=== PATIENT | female | born 1945 | race Caucasian/White ===

== ENCOUNTER 2017-06-12 21:40 | Emergency (ER) | payer MEDICARE, OTHER ==
[2017-06-12] MEDS ORDERED: Alum Hydroxide/Mag Hydroxide 15 ML, Lidocaine 2% 15 ML PO ONE ×2 (22:03)
--- NOTE | 2017-06-12 22:14 | EDM.PDOC ---
ED HPI GENERAL MEDICAL PROBLEM - General Chief Complaint: Cardiovascular Problem Stated Complaint: HEART PROBLEMS Time Seen by Provider: 06/12/17 22:00 Source of Information: Reports: Patient, Old Records History Limitations: Reports: No Limitations - History of Present Illness INITIAL COMMENTS - FREE TEXT/NARRATIVE: 72 yo female developed central/left chest discomfort like ingestion after eating a large supper with grilled chicken/potato salad. Since she has a pHx of CAD she decided to come to the ER for evaluation. Pain does not resemble that from when she had her [place]. No nausea, diaphoresis, or SOB. No self tx. Pain is gradually improving since its onset. Does not have NTG at home. No calf pain or LE edema. Onset: Today Onset Date: 06/12/17 Onset Time: 19:00 Duration: Minutes: Location: Reports: Chest Quality: Reports: Burning Severity: Moderate Improves with: Reports: Other (time) Worsens with: Reports: Other (? 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) (None) - Related Data Allergies Allergy/AdvReac Type Severity Reaction Status Date / Time chlorhexidine Allergy Itching Verified 01/14/16 08:57 codeine Allergy Nausea and Verified 01/14/16 08:57 Vomiting naproxen Allergy Hives Verified 01/14/16 08:57 Home Meds: Home Meds Acetaminophen [Tylenol Arthritis Pain] 1,300 mg PO BID 03/29/14 [History] Albuterol/Ipratropium [Combivent Respimat] 1 puff INH QID 03/29/14 [History] Alendronate [Fosamax] 70 mg PO Q7D 03/29/14 [History] Budesonide [Budesonide EC] 3 mg PO DAILY@0600 03/29/14 [History] Calcium Carbonate/Vitamin D3 [Calcium 600-Vit D3 800 Tablet] 1 tab PO DAILY@ 1100 03/29/14 [History] Cholecalciferol (Vitamin D3) [Vitamin D3] 2,000 units PO DAILY@1100 03/29/14 [ History] Clopidogrel [Plavix] 75 mg PO DAILY 03/29/14 [History] Isosorbide Mononitrate [Imdur] 15 mg PO BID 03/29/14 [History] Lisinopril [Prinivil] 40 mg PO DAILY 03/29/14 [History] Metoprolol Tartrate 50 mg PO BID 03/29/14 [History] Nitroglycerin [Nitrostat] 0.4 mg SL ASDIRECTED PRN 03/29/14 [History] Venlafaxine [Effexor XR] 75 mg PO DAILY 03/29/14 [History] amLODIPine [Norvasc] 10 mg PO BEDTIME 03/29/14 [History] atorvaSTATin [Lipitor] 40 mg PO BEDTIME 03/29/14 [History] clonazePAM [Klonopin] 2 mg PO BEDTIME 03/29/14 [History] Aspirin 81 mg PO DAILY 12/18/15 [History] Ciclopirox [Loprox 0.77% Crm] 1 dose TOP BID 12/18/15 [History] LORazepam [Ativan] 0.5 mg PO DAILY PRN 12/18/15 [History] Mesalamine [Lialda] 1.2 gm PO DAILY 12/18/15 [History] glipiZIDE [Glipizide ER] 10 mg PO DAILY 12/18/15 [History] Past Medical History HEENT History: Reports: Cataract Cardiovascular History: Reports: Bypass, CAD, High Cholesterol, Hypertension, [place] Respiratory History: Reports: Bronchitis, Recurrent, COPD, SOB, Other (See Below ) Other Respiratory History: EMPHYSEMA Gastrointestinal History: Reports: Cholelithiasis, Colon Polyp Genitourinary History: Reports: None 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: Musculoskeletal History: Reports: Back Pain, Chronic, Osteoporosis Neurological History: Reports: CVA Psychiatric History: Reports: Depression Endocrine/Metabolic History: Reports: Diabetes, Type I Hematologic History: Reports: None Immunologic History: Reports: None Oncologic (Cancer) History: Reports: None Dermatologic History: Reports: None - Infectious Disease History Infectious Disease History: Reports: Chicken Pox, Measles, Mumps - Past Surgical History HEENT Surgical History: Reports: Cataract Surgery, Tonsillectomy Female Surgical History: Reports: Breast Biopsy, Hysterectomy Musculoskeletal Surgical History: Reports: Arthroscopic Knee Social & Family History - Tobacco Use Smoking Status *Q: Current Every Day Smoker Years of Tobacco use: 45 Packs/Tins Daily: 0.5 - Alcohol Use Days Per Week of Alcohol Use: 0 - Recreational Drug Use Recreational Drug Use: No ED ROS GENERAL - Review of Systems Review Of Systems: See Below Constitutional: Reports: No Symptoms HEENT: Reports: No Symptoms Respiratory: Reports: No Symptoms Cardiovascular: Reports: Chest Pain Endocrine: Reports: No Symptoms GI/Abdominal: Denies: Abdominal Pain, Black Stool, Bloody Stool, Constipation, Diarrhea, Decreased Appetite, Distension, Flatus, Hematemesis, Hematochezia, Melena, Nausea, Stool Incontinence, Vomiting : Reports: No Symptoms Musculoskeletal: Reports: No Symptoms Skin: Reports: No Symptoms Neurological: Reports: No Symptoms Psychiatric: Reports: No Symptoms ED EXAM, GENERAL - Physical Exam Exam: See Below Exam Limited By: No Limitations General Appearance: Alert, WD/WN, No Apparent Distress Eye Exam: Bilateral Eye: Normal Inspection Ears: Normal External Exam, Normal Canal, Hearing Grossly Normal, Normal TMs Ear Exam: Bilateral Ear: Auricle Normal, Canal Normal Nose: Normal Inspection, Normal Mucosa, No Blood Throat/Mouth: Normal Inspection, Normal Lips, Normal Oropharynx, Normal Voice, No Airway Compromise Head: Atraumatic, Normocephalic Neck: Normal Inspection Respiratory/Chest: No Respiratory Distress, Lungs Clear, Normal Breath Sounds, No Accessory Muscle Use, Chest Non-Tender Cardiovascular: Regular Rate, Rhythm, No Edema GI/Abdominal: Normal Bowel Sounds, Soft, Non-Tender, No Distention, No Mass Back Exam: Normal Inspection, Full Range of Motion. No: CVA Tenderness (R), CVA Tenderness (L) Extremities: Normal Inspection, Normal Range of Motion, Non-Tender, No Pedal Edema Neurological: Alert, Oriented, CN II-XII Intact, Normal Cognition, No Motor/ Sensory Deficits Psychiatric: Normal Affect, Normal Mood Skin Exam: Warm, Dry, Intact, Normal Color, No Rash Lymphatic: No Adenopathy EKG INTERPRETATION EKG Date: 06/12/17 Time: 21:55 Rhythm: NSR Rate (Beats/Min): 80 [place]: Normal P-Wave: Present QRS: Normal ST-T: Normal QT: Normal Comparison: NA - No Prior EKG EKG Interpretation Comments: Q's in inferior leads. No acute changes. No ectopy. Course - Vital Signs Text/Narrative:: GI cocktail po-sx's completely gone - Orders/Labs/Meds Meds: Medications Discontinued Medications Generic Name Dose Route Start Last Admin Trade Name Beck PRN Reason Stop Dose Admin Al Hydroxide/Mg Hydroxide 15 0 ml 06/12/17 22:03 ml/ Lidocaine HCl 15 ml PO 06/12/17 22:04 ONETIME ONE Departure - Departure Time of Disposition: 22:23 Disposition: Home, Self-Care 01 Condition: Good Clinical Impression: GERD (gastroesophageal reflux disease) Qualifiers: Esophagitis presence: without esophagitis Qualified Code(s): K21.9 - Gastro- esophageal reflux disease without esophagitis
[2017-06-12 22:57] VITALS: BP 100/53
== END 2017-06-12 22:43 | disposition home or self-care (01) ==
LOC: FB.ED 21:40
DX: K21.9 Gastro-esophageal reflux disease without esophagitis (principal); I25.10 Atherosclerotic heart disease of native coronary artery without angina pectoris; I25.2 Old myocardial infarction; E78.00 Pure hypercholesterolemia, unspecified; I10 Essential (primary) hypertension; J44.9 Chronic obstructive pulmonary disease, unspecified; F32.9 Major depressive disorder, single episode, unspecified; E10.9 Type 1 diabetes mellitus without complications; F17.210 Nicotine dependence, cigarettes, uncomplicated; M81.0 Age-related osteoporosis without current pathological fracture; Z88.1 Allergy status to other antibiotic agents; Z88.5 Allergy status to narcotic agent; Z88.8 Allergy status to other drugs, medicaments and biological substances; Z79.82 Long term (current) use of aspirin; Z79.899 Other long term (current) drug therapy; Z95.1 Presence of aortocoronary bypass graft; Z86.73 Personal history of transient ischemic attack (TIA), and cerebral infarction without residual deficits; Z90.89 Acquired absence of other organs; Z90.710 Acquired absence of both cervix and uterus; Z98.49 Cataract extraction status, unspecified eye
CPT/HCPCS: 93005; 99283; A9270

== ENCOUNTER 2018-12-12 22:45 | Emergency (ER) | payer MEDICARE, OTHER ==
[2018-12-13] MEDS ORDERED: Sodium Phosphate,Monobasic/Sodium Phosphate,Dibasic Enema 133 ML Bottle RECTAL ONE (00:08)
--- NOTE | 2018-12-13 00:08 | EDM.PDOC ---
ED HPI GENERAL MEDICAL PROBLEM - General Chief Complaint: Gastrointestinal Problem Stated Complaint: CONSTIPATION Time Seen by Provider: 12/12/18 22:45 Source of Information: Reports: Patient, Family () History Limitations: Reports: No Limitations - History of Present Illness INITIAL COMMENTS - FREE TEXT/NARRATIVE: 73 y.o.w.f came with her to [facility] ed due to abd. pain, not having a BM after 3 days. Pt attempted several laxatives. She does not pass gas either. No N /V. Pt underwent Gall bladder, appendix and hysterectomy in the past. She had polyps at her colon removed as well. She did not see blood in her stool on her last BM. No other acute medical issues. BP 98/64 pulse Temp 36.9 Pulse 71 RR 18 Pulse ox 100% on RA Onset Date: 12/10/18 Onset Time: 08:00 Duration: Day(s): Location: Reports: Abdomen Quality: Reports: Dull Severity: Mild Improves with: Reports: None Worsens with: Reports: None Context: Reports: Other (no BM for 3 days.) Associated Symptoms: Reports: No Other Symptoms abdomen Pain Score (Numeric/FACES): 0 - Related Data Allergies Allergy/AdvReac Type Severity Reaction Status Date / Time chlorhexidine Allergy Itching Verified 12/13/18 03:05 codeine Allergy Nausea and Verified 12/13/18 03:05 Vomiting naproxen Allergy Hives Verified 12/13/18 03:05 Home Meds: Home Meds . 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: Musculoskeletal History: Reports: Back Pain, Chronic, Osteoporosis Neurological History: Reports: CVA Psychiatric History: Reports: Depression Endocrine/Metabolic History: Reports: Diabetes, Type I Hematologic History: Reports: None Immunologic History: Reports: None Oncologic (Cancer) History: Reports: None Dermatologic History: Reports: None - Infectious Disease History Infectious Disease History: Reports: Chicken Pox, Measles, Mumps - Past Surgical History HEENT Surgical History: Reports: Cataract Surgery, Tonsillectomy Female Surgical History: Reports: Breast Biopsy, Hysterectomy Musculoskeletal Surgical History: Reports: Arthroscopic Knee Social & Family History - Caffeine Use Caffeine Use: Reports: None ED ROS GENERAL - Review of Systems Review Of Systems: See Below Constitutional: Reports: No Symptoms HEENT: Reports: No Symptoms Respiratory: Reports: No Symptoms Cardiovascular: Reports: No Symptoms Endocrine: Reports: No Symptoms GI/Abdominal: Reports: Abdominal Pain : Reports: No Symptoms Musculoskeletal: Reports: No Symptoms Skin: Reports: No Symptoms Neurological: Reports: No Symptoms Psychiatric: Reports: No Symptoms Hematologic/Lymphatic: Reports: No Symptoms Immunologic: Reports: No Symptoms ED EXAM, GI/ABD - Physical Exam Exam: See Below Exam Limited By: No Limitations General Appearance: Alert, WD/WN, Mild Distress Eyes: Bilateral: Normal Appearance Ears: Normal External Exam Nose: Normal Inspection Throat/Mouth: Normal Voice, No Airway Compromise, Other (poor dentition) Head: Atraumatic, Normocephalic Neck: Normal Inspection, Supple, Non-Tender Respiratory/Chest: No Respiratory Distress, Lungs Clear, Normal Breath Sounds, No Accessory Muscle Use, Chest Non-Tender Cardiovascular: Normal Peripheral Pulses, Regular Rate, Rhythm, No Edema, No Gallop GI/Abdominal Exam: Normal Bowel Sounds, Soft, No Organomegaly, Pelvis Stable, Distended (minor), Abnormal Bowel Sounds (Female) Exam: Deferred Rectal (Female) Exam: Deferred Back Exam: Normal Inspection, Full Range of Motion Extremities: Normal Inspection, Normal Range of Motion Neurological: Alert, Oriented, CN II-XII Intact, Normal Cognition, Normal Gait Psychiatric: Normal Affect, Normal Mood Skin Exam: Warm, Dry, Intact, Normal Color, No Rash Lymphatic: No Adenopathy Course - Vital Signs Text/Narrative:: 73 y.o.w.f came with her to [facility] ed due to abd. pain, not having a BM after 3 days. Pt attempted several laxatives. She does not pass gas either. No N /V. Pt underwent Gall bladder, appendix and hysterectomy in the past. She had polyps at her colon removed as well. She did not see blood in her stool on her last BM. No other acute medical issues. BP 98/64 pulse Temp 36.9 Pulse 71 RR 18 Pulse ox 100% on RA PE: 73 Y.O w f unable to pass stool Imaging: Abd flat/upright: Constipation Impression: Constipation Tx: Fleets enema. Reexam: It took some time for the pt to pass stoo. Dulcolax, MG Citrate were suggested. Finally. Pt had a large BM before D/C, no blood in stool, stool was soft, her discomfort improved. Plan: D/C with instructions Last Recorded V/S: Last Vital Signs Temp 36.6 C 12/13/18 01:05 Pulse 68 12/13/18 01:05 Resp 16 12/13/18 01:05 BP 105/57 L 12/13/18 01:05 Pulse Ox 100 12/13/18 01:05 - Orders/Labs/Meds Orders: Active Orders 24 hr Category Date Time Status Abdomen 2V AP Flat Upright [CR] Stat Exams 12/12/18 22:52 Taken UA W/MICROSCOPIC [URIN] Stat Lab 12/12/18 22:52 Ordered Meds: Medications Discontinued Medications Generic Name Dose Route Start Last Admin Trade Name Freq PRN Reason Stop Dose Admin Bisacodyl 10 mg 12/13/18 00:56 12/13/18 01:15 Dulcolax RECTAL 12/13/18 00:57 Not Given ONETIME ONE Magnesium Citrate 296 ml 12/13/18 00:56 12/13/18 01:15 Citrate Of Magnesia PO 12/13/18 00:57 Not Given ONETIME ONE Sodium Biphosphate/Sodium Phosphate 133 ml 12/13/18 00:08 12/13/18 00:30 Fleet Enema RECTAL 12/13/18 00:09 1 unit ONETIME ONE Administration Departure - Departure Time of Disposition: 01:00 Disposition: Home, Self-Care 01 Condition: Good Clinical Impression: Constipation - Discharge Information Instructions: Constipation, Adult Referrals: Marcos Doran MD [Primary Care Provider] - Forms: ED Department Discharge Additional Instructions: Please eat oatmeal daily, please f/u with your Doctor. Come back if your symptoms get worse acutely - My Orders Last 24 Hours: My Active Orders 12/12/18 22:52 Abdomen 2V AP Flat Upright [CR] Stat UA W/MICROSCOPIC [URIN] Stat - Assessment/Plan Last 24 Hours: My Active Orders 12/12/18 22:52 Abdomen 2V AP Flat Upright [CR] Stat UA W/MICROSCOPIC [URIN] Stat
[2018-12-13] MEDS ORDERED: Magnesium Citrate Solution 296 ML Bottle PO ONE (00:56)
[2018-12-13] MEDS ORDERED: Bisacodyl 10 MG Supp RECTAL ONE (00:56)
[2018-12-13 03:25] VITALS: BP 105/57
--- NOTE | 2018-12-13 11:15 | CR ---
INDICATION: No BM for 3 days, abdominal pain. ABDOMEN: Supine and upright views of the abdomen were obtained, 12/12/18 - no comparisons. Calcifications are noted in the abdominal aorta, iliac and femoral arteries. The pattern of gas and feces appears to be fairly nonspecific with some very minimal air fluid levels suggested in the right flank. No significant distention of the bowel was seen, however, and a normal amount of stool is suggested. No mechanically obstructive process is identified - no free air is seen. No organomegaly, mass lesions, or nonvascular pathologic calcifications were noted. IMPRESSION: 1. Nonacute abdomen - minimal air fluid levels in the right flank are likely nonspecific but should be correlated clinically. 2. ASD. 3. No mechanically obstructive process identified. MTDD
== END 2018-12-13 01:15 | disposition home or self-care (01) ==
LOC: FB.ED 22:45
DX: K59.00 Constipation, unspecified (principal); E10.9 Type 1 diabetes mellitus without complications; I10 Essential (primary) hypertension; I25.2 Old myocardial infarction; Z88.8 Allergy status to other drugs, medicaments and biological substances; Z88.5 Allergy status to narcotic agent
CPT/HCPCS: 74019; 99283

== ENCOUNTER 2021-09-19 13:02 | Observation (INO) | payer MEDICARE, OTHER ==
--- NOTE | 2021-09-19 13:27 | EDM.PDOC ---
ED HPI GENERAL MEDICAL PROBLEM - General Stated Complaint: VOMITING Time Seen by Provider: 09/19/21 13:18 Source of Information: Reports: Patient History Limitations: Reports: No Limitations - History of Present Illness INITIAL COMMENTS - FREE TEXT/NARRATIVE: 76-year-old female who reports awakened at 5 AM today with lower quadrant abdominal pain and diarrhea and vomiting. She states that the symptoms have been present all day long. They have been constant. The pain is a crampy type pain that she would rated as a 10 over 10 in her back and an 8/10 in her abdomen. She reports pain in bilateral lower back and flank areas as well as pain in her mid abdomen. He does seem to come in waves. She has had diarrhea 10 and vomiting 5. There has been no blood in either the vomiting or diarrhea. No fevers. No shortness of breath. She has had no chest pain associated with this. She does feel weak and dizzy particularly with standing. She has been unable to retain any liquids and has had no appetite through the day. Much of her emesis has been dry heaving toward the end. It has been nonbilious. She presents to the emergency department via private vehicle with her . She feels quite uncomfortable now. There are no other associated signs or symptoms. There are no other modifying factors. Onset: Today Duration: Constant (A.m.) Location: Reports: Abdomen, Back Quality: Reports: Sharp, Other (Cramping) Severity: Severe Improves with: Reports: None Worsens with: Reports: None Context: Reports: Other (As above) Associated Symptoms: Reports: No Other Symptoms (Except as above) Treatments BAGGAGE CHECKER: Reports: Other (see below) (Nothing.) Bilateral Lower Abdomen Pain Score (Numeric/FACES): 8 [place]. LOWER BACK Pain Score (Numeric/FACES): 2 - Related Data Allergies Allergy/AdvReac Type Severity Reaction Status Date / Time chlorhexidine Allergy Itching Verified 12/13/18 03:05 codeine Allergy Nausea and Verified 12/13/18 03:05 Vomiting naproxen Allergy Hives Verified 12/13/18 03:05 Home Meds: Home Meds Acetaminophen [Tylenol] 650 mg PO Q4H PRN tablet 09/20/21 [Rx] Past Medical History HEENT History: Reports: Cataract, Hard of Hearing Cardiovascular History: Reports: Bypass, CAD, High Cholesterol, Hypertension, ID Respiratory History: Reports: Bronchitis, Recurrent, COPD, SOB, Other (See Below) Other Respiratory History: EMPHYSEMA Gastrointestinal History: Reports: Cholelithiasis, Colon Polyp Musculoskeletal History: Reports: Back Pain, Chronic, Osteoporosis Other Musculoskeletal History: recent fractre of right upper arm without repair Neurological History: Reports: CVA Psychiatric History: Reports: Anxiety, Depression Endocrine/Metabolic History: Reports: Diabetes, Type I - Infectious Disease History Infectious Disease History: Reports: Chicken Pox, Measles, Mumps - Past Surgical History HEENT Surgical History: Reports: Cataract Surgery, Tonsillectomy Cardiovascular Surgical History: Reports: Coronary Artery Bypass GI Surgical History: Reports: Appendectomy, Cholecystectomy Female Surgical History: Reports: Breast Biopsy, Hysterectomy Musculoskeletal Surgical History: Reports: Arthroscopic Knee Social & Family History - Tobacco Use Tobacco Use Status *Q: Current Every Day Tobacco User - Caffeine Use Caffeine Use: Reports: None - Alcohol Use Alcohol Use History: No - Living Situation & Occupation Living situation: Reports: Occupation: Retired ED ROS GENERAL - Review of Systems Review Of Systems: See Below Constitutional: Reports: Malaise. Denies: Fever, Chills HEENT: Denies: Throat Pain, Throat Swelling Respiratory: Reports: Cough (Chronic cough, unchanged.). Denies: Shortness of Breath, Wheezing Cardiovascular: Denies: Chest Pain, Palpitations GI/Abdominal: Reports: Abdominal Pain, Diarrhea, Decreased Appetite, Nausea, Vomiting. Denies: Bloody Stool : Reports: Flank Pain (Bilateral). Denies: Dysuria, Hematuria Musculoskeletal: Reports: Back Pain. Denies: Neck Pain, Arm Pain Skin: Denies: Diaphoresis, Rash Neurological: Reports: Dizziness. Denies: Confusion Hematologic/Lymphatic: Denies: Easy Bleeding, Easy Bruising ED EXAM, GENERAL - Physical Exam Exam: See Below Exam Limited By: Uncooperative General Appearance: Alert, WD/WN, Moderate Distress (Is awake alert. But appears in some discomfort.) Eye Exam: Bilateral Eye: EOMI, Normal Inspection (Sclera are anicteric) Ears: Normal External Exam, Hearing Loss Ear Exam: Bilateral Ear: Auricle Normal Nose: Normal Inspection, Normal Mucosa, No Blood Throat/Mouth: Normal Voice, No Airway Compromise, Other (Dry mucous membranes) Head: Atraumatic, Normocephalic Neck: Normal Inspection, Supple, Non-Tender, Full Range of Motion Respiratory/Chest: No Respiratory Distress, Lungs Clear, Normal Breath Sounds, No Accessory Muscle Use, Chest Non-Tender Cardiovascular: Normal Peripheral Pulses, Regular Rate, Rhythm, No Murmur Peripheral Pulses: 2+: Radial (L), Radial (R), Dorsalis Pedis (L), Dorsalis Pedis (R) GI/Abdominal: Soft, No Distention, No Mass, Tender, Abnormal Bowel Sounds (Somewhat increased bowel sounds.). No: Guarding, Rigid, Rebound Back Exam: Normal Inspection. No: CVA Tenderness (R), CVA Tenderness (L) Extremities: Normal Inspection, Normal Range of Motion, Non-Tender, No Pedal Edema, Normal Capillary Refill Neurological: Alert, Oriented, CN II-XII Intact, Normal Cognition, No Motor/Sensory Deficits Psychiatric: Normal Affect Skin Exam: Warm, Dry, Intact, Normal Color, No Rash #1 Interpretation EKG Date: 09/19/21 Time: 14:24 Rhythm: NSR Rate (Beats/Min): 84 [place]: Normal P-Wave: Enlarged (Left atrial enlargement) QRS: RBBB ST-T: Other (LVH) QT: Prolonged (Prolonged QTc) Comparison: Change From Previous EKG (EKG performed on 06/12/2017, the anterior lateral ST-T changes seem to be more prominent today.) Course - Vital Signs Last Recorded V/S: Last Vital Signs Temp 37.2 C 09/20/21 07:45 Pulse 80 09/20/21 07:45 Resp 22 H 09/20/21 07:45 BP 116/40 L 09/20/21 07:45 Pulse Ox 94 L 09/20/21 07:45 - Orders/Labs/Meds Orders: Active Orders 24 hr Category Date Time Status Abdomen Pelvis w Cont [CT] Stat Exams 09/19/21 16:10 Taken Abdomen Series w Chest 1V [CR] Stat Exams 09/19/21 14:51 Taken Peripheral IV Insertion Adult [OM.PC] Routine Oth 09/19/21 13:45 Ordered EKG 12 Lead [EK] Routine Ther 09/19/21 13:45 Ordered Labs: Laboratory Tests 09/19/21 09/19/21 09/19/21 Range/Units 14:00 14:00 14:00 WBC 13.2 H (3.0-10.3) x10-3/uL RBC 4.52 (3.60-5.20) x10(6)uL Hgb 14.4 (11.4-15.5) g/dL Hct 44.2 (34.2-48.2) % MCV 97.9 (76.7-100.5) fL MCH 31.8 (23.9-33.9) pg MCHC 32.5 (31.9-34.8) g/dL RDW 12.9 (12.3-16.5) % Plt Count 323 (151-488) x10(3)uL MPV 7.8 (7.1-12.4) fL Add Manual Diff Yes Neutrophils % (Manual) 83 H (46-82) % Lymphocytes % (Manual) 11 L (13-37) % Monocytes % (Manual) 6 (4-12) % Sodium 144 (135-145) mmol/L Potassium 4.2 (3.5-5.3) mmol/L Chloride 108 (100-110) mmol/L Carbon Dioxide 25 (21-32) mmol/L BUN 17 (7-18) mg/dL Creatinine 1.0 (0.55-1.02) mg/dL Est Cr Clr Drug Dosing TNP Estimated GFR (MDRD) 54 L (>60) BUN/Creatinine Ratio 17.0 (9-20) Glucose 200 H (80-116) mg/dL Calcium 8.8 (8.6-10.2) mg/dL Magnesium 1.6 L (1.8-2.5) mg/dL Total Bilirubin 0.9 (0.1-1.3) mg/dL AST 76 H (5-25) IU/L ALT 40 H (12-36) U/L Alkaline Phosphatase 103 (56-112) IU/L Troponin I 213.4 H* (4.0-60.3) pg/mL C-Reactive Protein < 0.2 L (0.5-0.9) mg/dL Total Protein 7.0 (6.0-8.0) g/dL Albumin 4.0 (3.2-4.6) g/dL Globulin 3.0 g/dL Albumin/Globulin Ratio 1.3 Lipase 79 (73-393) U/L SARS-CoV-2 RNA (KATHY) (NEGATIVE) 09/19/21 09/19/21 Range/Units 18:38 18:50 WBC (3.0-10.3) x10-3/uL RBC (3.60-5.20) x10(6)uL Hgb (11.4-15.5) g/dL Hct (34.2-48.2) % MCV (76.7-100.5) fL MCH (23.9-33.9) pg MCHC (31.9-34.8) g/dL RDW (12.3-16.5) % Plt Count (151-488) x10(3)uL MPV (7.1-12.4) fL Add Manual Diff Neutrophils % (Manual) (46-82) % Lymphocytes % (Manual) (13-37) % Monocytes % (Manual) (4-12) % Sodium (135-145) mmol/L Potassium (3.5-5.3) mmol/L Chloride (100-110) mmol/L Carbon Dioxide (21-32) mmol/L BUN (7-18) mg/dL Creatinine (0.55-1.02) mg/dL Est Cr Clr Drug Dosing Estimated GFR (MDRD) (>60) BUN/Creatinine Ratio (9-20) Glucose (80-116) mg/dL Calcium (8.6-10.2) mg/dL Magnesium (1.8-2.5) mg/dL Total Bilirubin (0.1-1.3) mg/dL AST (5-25) IU/L ALT (12-36) U/L Alkaline Phosphatase (56-112) IU/L Troponin I 390.6 H* (4.0-60.3) pg/mL C-Reactive Protein (0.5-0.9) mg/dL Total Protein (6.0-8.0) g/dL Albumin (3.2-4.6) g/dL Globulin g/dL Albumin/Globulin Ratio Lipase (73-393) U/L SARS-CoV-2 RNA (KATHY) Negative (NEGATIVE) Meds: Medications Discontinued Medications Generic Name Dose Route Start Last Admin Trade Name Freq PRN Reason Stop Dose Admin Acetaminophen 650 mg 09/19/21 19:35 Acetaminophen 325 Mg Tab PO Q4H PRN Pain (Mild 1-3)/fever Enoxaparin Sodium 75 mg 09/19/21 19:39 09/19/21 21:03 Enoxaparin 80 Mg/0.8 Ml Syringe SUBCUT 09/19/21 19:40 75 mg ONETIME ONE Administration Sodium Chloride 500 mls @ 999 mls/hr 09/19/21 13:48 09/19/21 14:05 Normal Saline IV 09/19/21 14:18 999 mls/hr .BOLUS ONE Administration Sodium Chloride 1,000 mls @ 125 mls/hr 09/19/21 14:00 09/20/21 01:31 Normal Saline IV 125 mls/hr ASDIRECTED JOSELINE Administration Sodium Chloride 500 mls @ 999 mls/hr 09/19/21 16:11 09/19/21 16:20 Normal Saline IV 09/19/21 16:41 999 mls/hr .BOLUS ONE Administration Iopamidol 75 ml 09/19/21 16:14 09/19/21 16:35 Iopamidol 755 Mg/Ml 75 Ml Bottle IV 09/19/21 16:15 75 ml ASDIRECTED ONE Administration Morphine Sulfate 4 mg 09/19/21 13:48 09/19/21 14:20 Morphine 4 Mg/Ml Vial IVPUSH 09/19/21 13:49 4 mg ONETIME ONE Administration Ondansetron HCl 4 mg 09/19/21 13:48 09/19/21 14:09 Ondansetron 4 Mg/2 Ml Sdv IVPUSH 09/19/21 13:49 4 mg ONETIME ONE Administration Ondansetron HCl 4 mg 09/19/21 19:35 Ondansetron 4 Mg/2 Ml Sdv IV Q6H PRN Nausea/Vomiting Sodium Chloride 10 ml 09/19/21 13:45 09/19/21 14:00 Sodium Chloride 0.9% 10 Ml Syringe FLUSH 10 ml ASDIRECTED PRN Administration Keep Vein Open - Radiology Interpretation Free Text/Narrative:: CT scan of the abdomen and pelvis showed no acute findings in the abdomen or pelvis per the radiologist but he did say that there was partially fluid-filled colon that can be seen with any etiology for diarrhea. This was per the [facility] radiologist. - Re-Assessments/Exams Free Text/Narrative Re-Assessment/Exam: 09/19/21 14:40: The white blood cell count was 13.1. Hemoglobin was normal. The BUN/creatinine were normal. Your mild AST and ALT elevations. The troponin was 200 which is somewhat elevated. A urinalysis is pending. Magnesium level is normal. The EKG shows no STEMI pattern but there are some ST-T changes anterolaterally laterally that seemed to be more prominent than previous EKG. The patient is having no chest pain. Her pain is all in her abdomen and radiating into her lower back. I am unsure why she has the troponin elevation. I am more concerned about a potential for intra-abdominal infection or intestinal obstruction. The patient is receiving IV normal saline as a bolus and some pain medication and antinausea medication. I will send the patient for a CT of the abdomen and pelvis with IV contrast. 09/19/21 17:30: The CT scan of the abdomen and pelvis showed no evidence of obstruction or colitis or diverticulitis. There was some evidence of enteritis with fluid-filled colon. The patient feels much improved. Her pain is essentially resolved and she has only some soreness in her lower back. There emesis. She has had no further diarrhea. Her troponin was slightly elevated at 200. I will plan on discussing the patient with Dr. Ledezma because plan would be to admit the patient here for serial troponin trending. The patient is pain- free now and has never had any chest pain. I feel that the chance that this is an acute cardiac syndrome is low I had previously called and discussed this with [facility] in [place] but they have no beds available and are not accepting any transfers and are asking outside hospitals to hold patient's like this and break them appropriately with observation and possibly be able to transfer them tomorrow if needed. 09/19/21 18:30: I was able to discuss the patient with Dr. Ledezma and she would be agreeable to accepting the patient tomorrow. Therefore I will will plan on admitting the patient here as I will repeat the patient's troponin now. I discussed all this with the patient and with the patient's . I explained all of this to them and answered their questions. They are in agreement with this plan as well. The patient remains chest pain-free and feels much improved. Infection wants to eat something but I have told her that I will give her some clear liquids. 09/19/21 19:25: The patient's repeat troponin is 393. She remains chest pain- free and has never had any chest pain. There is no shortness of breath. She feels much improved from previous and think that any elevation in her troponin is most likely related to a demand type problem associated with the stress that the vomiting and diarrhea place the patient. I will place the patient on Lovenox and we will continue close monitoring outpatient with serial troponins and monitor the patient on telemetry. In addition, I was going to give the patient a spirin 324 mg but she is allergic to NSAIDs with hives. I once again called [facility] in [place] and discussed this with them. They are currently on divert and only accepting STEMI's, strokes or trauma patients. And would recommend that this type of patient be admitted at the outset facilities as above. I discussed this with Carmen and will be repeating the troponin. Departure - Departure Time of Disposition: 19:30 Disposition: Refer to Observation Condition: Fair (Stable/improved) Clinical Impression: Vomiting and diarrhea, Dehydration, moderate, Elevated troponin - Discharge Information - My Orders Last 24 Hours: My Active Orders 09/19/21 13:45 Peripheral IV Insertion Adult [OM.PC] Routine EKG 12 Lead [EK] Routine 09/19/21 14:51 Abdomen Series w Chest 1V [CR] Stat 09/19/21 16:10 Abdomen Pelvis w Cont [CT] Stat - Assessment/Plan Last 24 Hours: My Active Orders 09/19/21 13:45 Peripheral IV Insertion Adult [OM.PC] Routine EKG 12 Lead [EK] Routine 09/19/21 14:51 Abdomen Series w Chest 1V [CR] Stat 09/19/21 16:10 Abdomen Pelvis w Cont [CT] Stat
[2021-09-19] MEDS ORDERED: Sodium Chloride 0.9% 10 ML Syringe FLUSH PRN (13:45)
[2021-09-19] MEDS ORDERED: Sodium Chloride 0.9% 500 ML IV ONE ×2 (13:48→16:11)
[2021-09-19] MEDS ORDERED: Morphine 4 MG/ML VIAL IVPUSH ONE (13:48)
[2021-09-19] MEDS ORDERED: Ondansetron 4 MG/2 ML SDV IVPUSH ONE (13:48)
[2021-09-19] MEDS: Sodium Chloride 0.9% 1,000 ML IV SCH (14:44)
[2021-09-19] MEDS ORDERED: Iopamidol 755 Mg/ML 75 ML Bottle IV ONE (16:14)
[2021-09-19] MEDS ORDERED: Acetaminophen 325 MG Tab PO PRN (19:35)
[2021-09-19] MEDS ORDERED: Ondansetron 4 MG/2 ML SDV IV PRN (19:35)
[2021-09-19] MEDS ORDERED: Enoxaparin 80 MG/0.8 ML Syringe SUBCUT ONE (19:39)
[2021-09-20] MEDS: Sodium Chloride 0.9% 1,000 ML IV SCH (01:31)
[2021-09-20 10:19] VITALS: BP 116/40; PULSE 80
--- NOTE | 2021-09-20 17:21 | PCM.EKG ---
#1 Interpretation EKG Date: 09/20/21 Time: 03:39 Rhythm: NSR Rate (Beats/Min): 77 [place]: Normal P-Wave: Enlarged QRS: RBBB ST-T: Other (T wave flatted in lateral leads. Old Q waves in II, III, aVF.) QT: Prolonged Comparison: Change From Previous EKG EKG Interpretation Comments: NSR RBBB Old inferior infarct. Flattening T waves. T waves changed on 09/19/21 EKG, more flattened. Possible signs of ischemia.
--- NOTE | 2021-09-20 17:50 | PCM.HP.2 ---
H&P History of Present Illness - General Date of Service: 09/20/21 Admit Problem/Dx: Nausea vomiting Source of Information: Patient, Old Records, Provider History Limitations: Reports: No Limitations - History of Present Illness Initial Comments - Free Text/Narative: Shayy presented to ER yesterday for lower abdominal pain, diarrhea & vomiting, woke her up at 5 am, lasted all day and brought in by her yesterday afternoon. Described pain as crampy type pain, / in ER, no pain this morning . She stated she has low back pain at level of her waist, not new. Denied no blood in emesis or diarrhea. No fevers, chills, shortness of breath, chest pain. [place] weak, dizzy yesterday but resolved today. She had not been able to keep anything down yesterday, was dry heaving at the end but tolerated breakfast this morning. She had Bilateral endarterectomy 10/2010 and CABG x 2 in 10/2009. She states that she didn't have any chest pain at that time, she had a stress test, passed out and was told she had heart attack. Current smoker, states she is going to quit today. In ER: She had some changes in her lateral leads on EKG, troponin was elevated at 213.4. WBC 13.2, Hgb 14.4, Plt 323. Na 144, K 4.2, BUN 17, Cr 1.0. CRP <0.2. Lipase 79. Covid negative. CT abdomen/pelvis: no acute findings but some evidence of enteritis with partial fluid-filled colon. No obstruction, colitis or diverticulitis. Had NS bolus, Zofran given. No further diarrhea in ER. Repeat troponin was 390.6. Dr Keen spoke with [facility], no beds available advised to keep for observation and transfer to tomorrow if needed. [place] troponin elevation most likely related to demand type problem associated with the vomiting and diarrhea. Dr Keen talked with [facility] again after repeat troponin came back higher, again they stated they were on diversion except for STEMIs, Strokes and traumas. Recommend that this type of patient be admitted at outside facilities. He discussed with Dr Morales who was coming on for night and repeated troponin which was 308.9. Bilateral Lower Abdomen Pain Score (Numeric/FACES): 3 LES[place]. LOWER BACK Pain Score (Numeric/FACES): 2 - Related Data Allergies/Adverse Reactions: Allergies Allergy/AdvReac Type Severity Reaction Status Date / Time chlorhexidine Allergy Itching Verified 12/13/18 03:05 codeine Allergy Nausea and Verified 12/13/18 03:05 Vomiting naproxen Allergy Hives Verified 12/13/18 03:05 Home Medications: Home Meds Acetaminophen [Tylenol] 650 mg PO Q4H PRN tablet 09/20/21 [Rx] Past Medical History HEENT History: Reports: Cataract, Hard of Hearing Cardiovascular History: Reports: Bypass, CAD, High Cholesterol, Hypertension, MT Respiratory History: Reports: Bronchitis, Recurrent, COPD, SOB, Other (See Below) Other Respiratory History: EMPHYSEMA Gastrointestinal History: Reports: Cholelithiasis, Colon Polyp Genitourinary History: Reports: None [employer] History: Reports: Musculoskeletal History: Reports: Back Pain, Chronic, Osteoporosis Other Musculoskeletal History: recent fractre of right upper arm without repair Neurological History: Reports: CVA Psychiatric History: Reports: Anxiety, Depression Endocrine/Metabolic History: Reports: Diabetes, Type I Hematologic History: Reports: None Immunologic History: Reports: None Oncologic (Cancer) History: Reports: None Dermatologic History: Reports: None - Infectious Disease History Infectious Disease History: Reports: Chicken Pox, Measles, Mumps - Past Surgical History HEENT Surgical History: Reports: Cataract Surgery, Tonsillectomy Cardiovascular Surgical History: Reports: Coronary Artery Bypass GI Surgical History: Reports: Appendectomy, Cholecystectomy Female Surgical History: Reports: Breast Biopsy, Hysterectomy Musculoskeletal Surgical History: Reports: Arthroscopic Knee Social & Family History - Family History Family Medical History: No Pertinent Family History - Tobacco Use Tobacco Use Status *Q: Current Every Day Tobacco User Years of Tobacco use: 75 Packs/Tins Daily: 0.5 Used Tobacco, but Quit: No Tobacco Use Comment: may try to quite this time Second Hand Smoke Exposure: No - Caffeine Use Caffeine Use: Reports: None - Recreational Drug Use Recreational Drug Use: No - Living Situation & Occupation Living situation: Reports: Occupation: Retired H&P Review of Systems - Review of Systems: Review Of Systems: Comprehensive ROS is negative, except as noted in HPI. Exam - Exam Exam: See Below - Vital Signs Vital Signs: Last Vital Signs Temp 99.0 F 09/20/21 07:45 Pulse 80 09/20/21 07:45 Resp 22 H 11/21/21 07:45 BP 116/40 L 09/20/21 07:45 Pulse Ox 94 L 09/20/21 07:45 Weight: 107 lb 2 oz - Exam General: Alert, Oriented, Cooperative HEENT: PERRLA, Conjunctiva Clear, EOMI, Hearing Intact, Mucosa Moist & [place] Neck: Trachea Midline Lungs: Clear to Auscultation, Normal Respiratory Effort Cardiovascular: Regular Rate, Regular Rhythm GI/Abdominal Exam: Normal Bowel Sounds, Soft, Non-Tender, No Distention (Female) Exam: Deferred Rectal (Female) Exam: Deferred Back Exam: Normal Inspection, Paraspinal Tenderness (L1) Extremities: No Pedal Edema, Normal Capillary Refill Peripheral Pulses: 2+: Radial (L), Radial (R), Posterior Tibial (L), Posterior Tibial (R), Dorsalis Pedis (L), Dorsalis Pedis (R) Skin: Warm, Dry, Intact Neurological: Cranial Nerves Intact, Normal Speech, Normal Tone - Patient Data Lab Results Last 24 hrs: Laboratory Results - last 24 hr 09/19/21 09/19/21 09/20/21 Range/Units 18:38 18:50 00:48 WBC (3.0-10.3) x10-3/uL RBC (3.60-5.20) x10(6)uL Hgb (11.4-15.5) g/dL Hct (34.2-48.2) % MCV (76.7-100.5) fL MCH (23.9-33.9) pg MCHC (31.9-34.8) g/dL RDW (12.3-16.5) % Plt Count (151-488) x10(3)uL MPV (7.1-12.4) fL Neut % (Auto) (30.8-76.2) % Lymph % (Auto) (18.4-52.1) % [place] % (Auto) (4.4-15.7) % Eos % (Auto) (0.6-8.1) % Baso % (Auto) (0.2-1.5) % Neut # (Auto) (1.5-6.3) x10-3/uL Lymph # (Auto) (1.0-4.4) x10-3/uL [place] # (Auto) (0.3-1.0) x10-3/uL Eos # (Auto) (0.0-0.8) x10-3/uL Baso # (Auto) (0.0-0.1) x10-3/uL Sodium (135-145) mmol/L Potassium (3.5-5.3) mmol/L Chloride (100-110) mmol/L Carbon Dioxide (21-32) mmol/L BUN (7-18) mg/dL Creatinine (0.55-1.02) mg/dL Est Cr Clr Drug Dosing mL/min Estimated GFR (MDRD) (>60) BUN/Creatinine Ratio (9-20) Glucose (80-116) mg/dL Calcium (8.6-10.2) mg/dL Troponin I 390.6 H* 308.9 H* (4.0-60.3) pg/mL Urine Color (YELLOW) Urine Appearance (CLEAR) Urine pH (5.0-6.5) Ur Specific [place] (1.010-1.025) Urine Protein (NEGATIVE) mg/dL Urine Glucose (UA) (NORMAL) mg/dL Urine Ketones (NEGATIVE) mg/dL Urine Occult Blood (NEGATIVE) Urine Nitrite (NEGATIVE) Urine Bilirubin (NEGATIVE) Urine Urobilinogen (NEGATIVE) mg/dL Ur Leukocyte Esterase (NEGATIVE) Urine RBC (0-5) Urine WBC (0-5) Ur Squamous Epith Cells (NS,R,O) Urine Bacteria (NS) Urine Mucus (NS) SARS-CoV-2 RNA (KATHY) Negative (NEGATIVE) 09/20/21 09/20/21 09/20/21 Range/Units 03:45 06:10 06:10 WBC 6.0 (3.0-10.3) x10-3/uL RBC 3.42 L (3.60-5.20) x10(6)uL Hgb 11.1 L D (11.4-15.5) g/dL Hct 33.8 L D (34.2-48.2) % MCV 99.0 (76.7-100.5) fL MCH 32.3 (23.9-33.9) pg MCHC 32.7 (31.9-34.8) g/dL RDW 12.8 (12.3-16.5) % Plt Count 213 (151-488) x10(3)uL MPV 7.9 (7.1-12.4) fL Neut % (Auto) 65.2 (30.8-76.2) % Lymph % (Auto) 22.1 (18.4-52.1) % [place] % (Auto) 11.6 (4.4-15.7) % Eos % (Auto) 0.3 L (0.6-8.1) % Baso % (Auto) 0.8 (0.2-1.5) % Neut # (Auto) 3.9 (1.5-6.3) x10-3/uL Lymph # (Auto) 1.3 (1.0-4.4) x10-3/uL [place] # (Auto) 0.7 (0.3-1.0) x10-3/uL Eos # (Auto) 0.0 (0.0-0.8) x10-3/uL Baso # (Auto) 0.1 (0.0-0.1) x10-3/uL Sodium (135-145) mmol/L Potassium (3.5-5.3) mmol/L Chloride (100-110) mmol/L Carbon Dioxide (21-32) mmol/L BUN (7-18) mg/dL Creatinine (0.55-1.02) mg/dL Est Cr Clr Drug Dosing mL/min Estimated GFR (MDRD) (>60) BUN/Creatinine Ratio (9-20) Glucose (80-116) mg/dL Calcium (8.6-10.2) mg/dL Troponin I 211.0 H* (4.0-60.3) pg/mL Urine Color Yellow (YELLOW) Urine Appearance Slightly cloudy (CLEAR) Urine pH 6.0 (5.0-6.5) Ur Specific [place] 1.015 (1.010-1.025) Urine Protein Negative (NEGATIVE) mg/dL Urine Glucose (UA) Normal (NORMAL) mg/dL Urine Ketones Negative (NEGATIVE) mg/dL Urine Occult Blood Negative (NEGATIVE) Urine Nitrite Negative (NEGATIVE) Urine Bilirubin Negative (NEGATIVE) Urine Urobilinogen Normal (NEGATIVE) mg/dL Ur Leukocyte Esterase Negative (NEGATIVE) Urine RBC 0-5 (0-5) Urine WBC 0-5 (0-5) Ur Squamous Epith Cells Few H (NS,R,O) Urine Bacteria Few H (NS) Urine Mucus Few H (NS) SARS-CoV-2 RNA (KATHY) (NEGATIVE) 09/20/21 Range/Units 06:10 WBC (3.0-10.3) x10-3/uL RBC (3.60-5.20) x10(6)uL Hgb (11.4-15.5) g/dL Hct (34.2-48.2) % MCV (76.7-100.5) fL MCH (23.9-33.9) pg MCHC (31.9-34.8) g/dL RDW (12.3-16.5) % Plt Count (151-488) x10(3)uL MPV (7.1-12.4) fL Neut % (Auto) (30.8-76.2) % Lymph % (Auto) (18.4-52.1) % [place] % (Auto) (4.4-15.7) % Eos % (Auto) (0.6-8.1) % Baso % (Auto) (0.2-1.5) % Neut # (Auto) (1.5-6.3) x10-3/uL Lymph # (Auto) (1.0-4.4) x10-3/uL [place] # (Auto) (0.3-1.0) x10-3/uL Eos # (Auto) (0.0-0.8) x10-3/uL Baso # (Auto) (0.0-0.1) x10-3/uL Sodium 143 (135-145) mmol/L Potassium 3.2 L D (3.5-5.3) mmol/L Chloride 111 H (100-110) mmol/L Carbon Dioxide 21 (21-32) mmol/L BUN 12 (7-18) mg/dL Creatinine 0.9 (0.55-1.02) mg/dL Est Cr Clr Drug Dosing 38.79 mL/min Estimated GFR (MDRD) > 60 (>60) BUN/Creatinine Ratio 13.3 (9-20) Glucose 94 D (80-116) mg/dL Calcium 7.3 L (8.6-10.2) mg/dL Troponin I (4.0-60.3) pg/mL Urine Color (YELLOW) Urine Appearance (CLEAR) Urine pH (5.0-6.5) Ur Specific [place] (1.010-1.025) Urine Protein (NEGATIVE) mg/dL Urine Glucose (UA) (NORMAL) mg/dL Urine Ketones (NEGATIVE) mg/dL Urine Occult Blood (NEGATIVE) Urine Nitrite (NEGATIVE) Urine Bilirubin (NEGATIVE) Urine Urobilinogen (NEGATIVE) mg/dL Ur Leukocyte Esterase (NEGATIVE) Urine RBC (0-5) Urine WBC (0-5) Ur Squamous Epith Cells (NS,R,O) Urine Bacteria (NS) Urine Mucus (NS) SARS-CoV-2 RNA (KATHY) (NEGATIVE) Result Diagrams: 09/20/21 06:10 09/20/21 06:10 Sepsis Event Note - Evaluation Sepsis Screening Result: No Definite Risk - Focused Exam Vital Signs: Vital Signs Temp Pulse Resp BP Pulse Ox 09/20/21 07:45 99.0 F 80 22 H 116/40 L 94 L *Q Meaningful Use (ADM) - VTE Risk Assess *Q Each Risk Factor Represents 1 Point: None Total Score 1 Point Risk Factors: 0 Each Risk Factor Represents 2 Points: None Total Score 2 Point Risk Factors: 0 Each Risk Factor Represents 3 Points: Age 75 Years or Greater Total Score 3 Point Risk Factors: 3 Each Risk Factor Represents 5 Points: None Total Score 5 Point Risk Factors: 0 Venous Thromboembolism Risk Factor Score *Q: 3 - Problem List (1) Vomiting and diarrhea SNOMED Code(s): 078701348 ICD Code: R11.10 - VOMITING, UNSPECIFIED; R19.7 - DIARRHEA, UNSPECIFIED Status: Acute (2) Elevated troponin SNOMED Code(s): 462051319, 560493196, 640803030 ICD Code: R77.8 - OTHER SPECIFIED ABNORMALITIES OF PLASMA PROTEINS Status: Acute (3) Dehydration, moderate SNOMED Code(s): 3442865312970 ICD Code: E86.0 - DEHYDRATION Status: Acute (4) CAD (coronary artery disease) SNOMED Code(s): 11621551 ICD Code: I25.10 - ATHSCL HEART DISEASE OF [place] CORONARY ARTERY W/O ANG PCTRS Status: Chronic Onset Date: ~10/2009 (5) S/P CABG x 2 SNOMED Code(s): 712412337, 501498226, 018317770 ICD Code: Z95.1 - PRESENCE OF AORTOCORONARY BYPASS GRAFT Status: Acute Onset Date: ~10/2009 (6) S/P carotid endarterectomy SNOMED Code(s): 229779503, 64793818, 078973281 ICD Code: Z98.890 - OTHER SPECIFIED POSTPROCEDURAL STATES Status: Chronic Onset Date: ~10/2010 Problem List Initiated/Reviewed/Updated: Yes Orders Last 24hrs: Active Orders 24 hr Category Date Time Status Admission Status [Patient Status] [ADT] Routine ADT 09/19/21 19:33 Active Resuscitation Status Routine Resus Stat 09/19/21 19:35 Ordered EKG 12 Lead [EK] Routine Ther 09/20/21 07:00 Ordered Assessment/Plan Comment:: 1. Admit for observation for N/V/D, Elevated troponin, Dehydration. 2. N/V/D: WBC 6.0. Cr 0.9, resolved this morning. Tolerated diet this morning. States she feels at her baseline and wants to go home. 3. Elevated troponin: 213.4, 390.6, 308.9, 211 this morning. Received Lovenox 75 mg x 1 in ER as she has allergy listed to NSAIDs. She has been pain free since presenting to ER. She has some changes in T waves in lateral leads from previous. Pt did not want any further testing done here, wanted to go home. Ripped off her telemetry pads and demanded that she go home right now, that her was coming at 10 am and she was going. Had discussed with her earlier in visit about follow up with Dr Doran for stress test, states she would. I told her she could go home since she felt she was at baseline. When nurse went in to give her phone to talk to her she became belligerent, stating she was leaving right now. Her came and she had calmed down by then, he felt there was a misunderstand and they would follow up with Dr Doran this week to set up a stress test. 4. Dehydration: Resolved. Cr 0.9. WBC 6.0 5. Diet: Clears. 6. Activity: up ad mayco. 7. DVT: Lovenox 75 mg sq in ER. 8. CODE STATUS: FULL. 9. THIS NOTE ALSO SERVES DISCHARGE SUMMARY: Follow up with Dr Doran in 1-2 days to set up referral for stress test. Return to ER if symptoms return or has chest pain. Left in stable condition in the care of her . - Mortality Measure Prognosis:: Poor
--- NOTE | 2021-09-21 11:49 | CR ---
ABDOMEN SERIES WITH CHEST INDICATION: Severe abdominal and back pain, vomiting and diarrhea. CHEST: PA view of the chest with three additional views of the abdomen in supine and upright projections 09/19/21 were compared with 09/12/10. Post median sternotomy changes again noted with heart appearing normal in size. Calcification noted in the arch of the aorta. No consolidating pneumonia or effusion was identified. No free air was noted under the hemidiaphragm leaves. ABDOMEN: Three views of the abdomen were obtained in supine and upright projections and compared also with 09/12/10. Multiple tiny air fluid levels are scattered about the colon raising question of a process such as gastroenteritis, although colitis could also be present. No gross evidence of colitis was seen, however. No free air was identified. No mass lesions or nonvascular pathologic calcifications were noted with calcifications suggested in the aorta and iliac arteries. Evidence of previous surgery was noted in the epigastrium/left upper quadrant. IMPRESSION: No findings to strongly suggest a mechanically obstructive process. Findings more likely represent either a mild paralytic ileus or a process such as gastroenteritis, although colitis could also be present, it is felt to be less likely. Findings should be correlated clinically. Followup studies may be warranted. MTDD
== END 2021-09-20 09:55 | disposition home or self-care (01) ==
LOC: FB.ED 13:02 → FB.MS 19:33
PROVIDERS: ADMIT Emergency Medicine; ATTEND Family Medicine
DX: R10.30 Lower abdominal pain, unspecified (principal); R19.7 Diarrhea, unspecified; R11.10 Vomiting, unspecified; I25.10 Atherosclerotic heart disease of native coronary artery without angina pectoris; E78.00 Pure hypercholesterolemia, unspecified; I10 Essential (primary) hypertension; I25.2 Old myocardial infarction; E10.9 Type 1 diabetes mellitus without complications; F17.210 Nicotine dependence, cigarettes, uncomplicated; Z90.49 Acquired absence of other specified parts of digestive tract; R77.8 Other specified abnormalities of plasma proteins; E86.0 Dehydration; Z86.73 Personal history of transient ischemic attack (TIA), and cerebral infarction without residual deficits; Z88.5 Allergy status to narcotic agent; Z98.890 Other specified postprocedural states; Z88.8 Allergy status to other drugs, medicaments and biological substances; Z95.1 Presence of aortocoronary bypass graft; Z20.822 Contact with and (suspected) exposure to COVID-19
CPT/HCPCS: 36415; 74177; 80048; 80053; 81001; 83690; 83735; 84484; 85025; 86140; 93005; 96372; 96374; 96375; 99285; G0378; J1650; J2270; J2405; J7030; J7040; Q9967; U0002; 74022